=== PATIENT | male | born 1995 | race Two or more races ===

== ENCOUNTER 2018-09-12 07:32 | Emergency (ER) | payer OTHER ==
[~2018-09-12] VITALS: Ht 175.3 cm; Wt 81.0 kg
[2018-09-12] MEDS ORDERED: ONDANSETRON HCL 4MG/2ML INJ IV STA (08:14)
[2018-09-12] MEDS ORDERED: KETOROLAC 30MG/ML VIAL IV STA (08:14)
[2018-09-12 08:53] VITALS: BP 129/79
[2018-09-12 09:05] LABS: BASOPHILS % 0.1 % (0.0-2.0); EOSINOPHILS % 0.2 % (0.0-5.0); HEMATOCRIT. 51.5 % (42.0-52.0); HEMOGLOBIN. 17.9 g/dL (14.0-18.0); LYMPHOCYTES % 9.9 % (20.0-50.0); MEAN CORPUSCULAR VOLUME 89.4 fL (80.0-94.0); MEAN PLATELET VOLUME 8.6 fl (7.4-10.4); MONOCYTES % 6.2 % (2.0-8.0); NEUTROPHILS % 83.6 % (40.0-76.0); PLATELET 300 x1000/uL (130-400); RED BLOOD CELL COUNT 5.76 mill/uL (4.7-6.1); RED CELL DISTRIBUTION WIDTH 13.3 % (11.6-14.6)
[2018-09-12 09:11] LABS: INR 1.1
[2018-09-12 09:13] LABS: CHLORIDE 106 mEq/L (98-107)
== END 2018-09-12 11:18 | disposition home or self-care (01) ==
LOC: ER 07:32
DX: R10.32 Left lower quadrant pain (principal)
CPT/HCPCS: 36415; 74176; 80053; 83690; 85025; 85610; 96374; 96375; 99284; J1885; J2405

== ENCOUNTER 2019-05-08 07:26 | Emergency (ER) | payer SELFPAY ==
[~2019-05-08] VITALS: Ht 175.3 cm; Wt 70.0 kg
[2019-05-08 09:43] VITALS: BP 122/74
== END 2019-05-08 09:46 | disposition home or self-care (01) ==
LOC: ER 07:26
DX: H61.21 Impacted cerumen, right ear (principal); J02.9 Acute pharyngitis, unspecified
CPT/HCPCS: 69210; 87070; 87430; 99284